=== PATIENT | female | born 1980 | race Two or more races ===

== ENCOUNTER 2022-06-24 15:39 | Emergency (ER) | payer OTHER, SELFPAY ==
[2022-06-24 15:50] VITALS: BP 164/90; PULSE 90; RESP 16; TEMP 36.8; O2SAT 98; BMI 36.0
--- NOTE | 2022-06-24 16:09 | ED_ITS ---
HPI - General Adult General Chief complaint: Syncope/Fainted Stated complaint: Lightheaded, weakness, loss of breath Time Seen by Provider: 06/24/22 15:59 History of Present Illness HPI narrative: This 41-year-old female comes in reporting lightheadedness episode when getting out of the shower prior to arrival. She did not lose consciousness. She feels a little bit lightheaded yet but otherwise is back to normal. She states that she is starting add job with night shifts and has not eaten anything since last night in a process of attempting to adjust to a new time frame for her sleeping and wake cycles. She does report some increased urinary frequency over the past several weeks. She has not had any fevers. Related Data Previous Rx's Medication Instructions Recorded cephalexin 500 mg capsule 500 mg PO TID 7 days #21 caps 06/24/22 Allergies Allergy/AdvReac Type Severity Reaction Status Date / Time Milk Containing Products Allergy Unknown Verified 06/24/22 15:53 Review of Systems Status of ROS: Reports: 10 or more systems reviewed and unremarkable except as noted in History and below Narrative: Constitutional: No fevers, no weight gain or loss. Eyes: No discharge. No vision changes. HENT: No congestion, no sore throat, no ear pain. Cardiovascular: No chest pain, no palpitations. Respiratory: No shortness of breath, no wheezes, no cough. Gastrointestinal: No abdominal pain, no vomiting, no diarrhea. Genitourinary: No hematuria. Increased urinary frequency. Musculoskeletal: Normal range of motion. Skin: No rashes, no pruritis. Neurological: No weakness, sensory change, speech change. Lightheadedness episode as described above. Endo/Heme/Allergies: No bruising or bleeding. No polydipsia. Pysch: no suicidality, no anxiety, no insomnia. All other systems reviewed and are negative. PFSH PFSH Social History Smoking Status: Never smoker Do you use any of these nicotine containing products: None Second hand tobacco smoke exposure: No How often do you have a drink containing alcohol: never How often do you have six or more drinks on one occasion: Never AUDIT-C Alcohol total score: 0 Non-prescribed substance use: denies use service: No Exam Narrative: Exam Narrative: Constitutional: Well-developed, well-nourished, no acute distress. HEENT: Normocephalic, atraumatic. Neck: Normal range of motion. Nontender. Supple. Heart: Regular. No murmurs. Normal rate. Intact distal pulses. Lungs: Clear to auscultation. No chest discomfort. No wheezes, rhonchi, or rales. Abdomen: Normal bowel sounds. Nontender. No rebound tenderness. Genitalia: Deferred. Back: No midline tenderness. Normal range of motion. Extremities: Normal range of motion. No injury. Skin: Intact. No rash. Warm. No erythema or pallor. Neurologic: No altered sensation. No weakness. Alert and oriented. Psychiatric: No suicidality. No anxiety or depression. No insomnia. Nursing notes and vitals signs are reviewed. Const: Vital Signs, click to edit/add: Vital Signs - 24 hr 06/24/22 15:50 Temperature 98.2 F Pulse Rate [Pulse Oximeter] 90 Respiratory Rate 16 Blood Pressure [Ri ght Upper Arm] 164/90 H Pulse Oximetry 98 Oxygen Delivery Me thod Room Air Course Vital Signs Vital signs: Initial Vital Signs Temperature 98.2 F 06/24/22 15:50 Temperature Source Oral 06/24/22 15:50 Pulse Rate 90 06/24/22 15:50 Respiratory Rate 16 06/24/22 15:50 Blood Pressure 164/90 H 06/24/22 15:50 Blood Pressure Mean 114 06/24/22 15:50 Blood Pressure Position Sitting 06/24/22 15:50 Pulse Oximetry 98 06/24/22 15:50 Oxygen Delivery Method Room Air 06/24/22 15:50 Vital Signs Temperature 98.2 F 06/24/22 15:50 Pulse Rate 90 06/24/22 15:50 Respiratory Rate 16 06/24/22 15:50 Blood Pressure 164/90 H 06/24/22 15:50 Pulse Oximetry 98 06/24/22 15:50 Oxygen Delivery Method Room Air 06/24/22 15:50 Temperature 98.2 F 06/24/22 15:50 Pulse Rate 90 06/24/22 15:50 Respiratory Rate 16 06/24/22 15:50 Blood Pressure 164/90 H 06/24/22 15:50 Pulse Oximetry 98 06/24/22 15:50 Oxygen Delivery Method Room Air 06/24/22 15:50 Medical Decision Making MDM Narrative Medical decision making narrative: This patient reports a lightheadedness episode when getting out of the shower but also has had some increased urinary frequency over the past few weeks. She arrives here with normal vital signs in her EKG appears normal. I did discuss lab in further workup options regarding her lightheadedness which she declined in a process of shared decision making. A urinalysis is obtained however and this does show evidence of urinary tract infection. A prescription for Keflex is provided. Lab Data Labs: Lab Results 06/24/22 Range/Units 16:18 Urine Color Red A (Yellow) Urine Appearance Cloudy A (Clear) Urine pH 5.0 (5.0-8.5) Ur Specific [place] 1.015 (1.000-1.030) Urine Protein 3+ A (Negative) Urine Glucose (UA) 3+ A (Negative) Urine Ketones 2+ A (Negative) Urine Blood 3+ A (Negative) Urine Nitrite Positive A (Negative) Urine Bilirubin 3+ A (Negative) Urine Urobilinogen 1.0 (0.2-1.0) Ur Leukocyte Esterase 3+ A (Negative) Urine RBC >100 A (0-2) Urine WBC 25-50 A (0-5) Ur Squamous Epith Cells None (None-Few) Calcium Oxalate Crystal Few A (None) Urine Bacteria None (None) ECG Data Attestation: I personally reviewed and interpreted this ECG as follows: Interpretation: Normal sinus rhythm. Rate is 83 beats per minute. There are no ST or T-wave abnormalities. Discharge Plan Discharge Clinical Impression: Urinary tract infection Patient Disposition: Home, Self-Care Condition: Unchanged Additional Instructions: Take medication as prescribed. Follow up with MD or return if worsening. Prescriptions: New cephalexin 500 mg capsule 500 mg PO TID 7 Days Qty: 21 0RF Follow Up/Referrals: Ben Edward MD [Primary Care Provider] - Stand Alone Forms: Property Place Info Instructions
[2022-06-24 16:31] LABS: Appearance Urine Cloudy (Clear); Bilirubin Urine 3+ (Negative); Blood Urine 3+ (Negative); Color Urine Red (Yellow); Glucose Urine 3+ (Negative); Ketones Urine 2+ (Negative); Leukocyte Esterase Urine 3+ (Negative); Nitrite Urine Positive (Negative); Protein Urine 3+ (Negative); Specific Gravity Urine 1.015 (1.000-1.030)
[2022-06-24 17:04] LABS: RBC Urine >100 (0-2); WBC Urine 25-50 (0-5)
[2022-06-24 17:05] LABS: Calcium Oxalate Crystals Urine Few
[2022-06-24 17:19] VITALS: BP 119/67; PULSE 77; RESP 18; TEMP 36.8; O2SAT 99
== END 2022-06-24 17:19 | disposition home or self-care (01) ==
PROVIDERS: Emergency Provider Emergency Medicine Emergency Medical Services; PCP Family Medicine
DX: N39.0 Urinary tract infection, site not specified (principal)
CPT/HCPCS: 81001; 87086; 99283; 99284